=== PATIENT | male | born 1955 | race Caucasian/White ===

== ENCOUNTER 2017-10-20 16:40 | Emergency (ER) | payer SELFPAY ==
[~2017-10-20] VITALS: Ht 177.8 cm; Wt 72.0 kg
[2017-10-20 16:44] VITALS: BP 106/67; PULSE 94; RESP 20; TEMP 97.8; O2SAT 97
--- NOTE | 2017-10-20 17:32 | RADRPT ---
EXAM DATE/TIME: 10/20/2017 17:05 [place] COMPARISON: CHEST PA & LAT, April 26, 2016, 15:07. INDICATIONS : Short of breath for 3 weeks. Cough for 3 months. MEDICAL HISTORY : None. SURGICAL HISTORY : None. ENCOUNTER: Initial ACUITY: 3 months PAIN SCORE: 2/10 LOCATION: Bilateral chest FINDINGS: PA and lateral views of the chest demonstrate the lungs to be moderately hyperinflated without eviden ce of mass, infiltrate or effusion. The cardiomediastinal contours are unremarkable. Trace blunting of the costophrenic sulci Osseous structures are intact. CONCLUSION: Moderate hyperinflation, negative for acute process Chapincito Stein MD FACR on October 20, 2017 at 17:25 Board Certified Radiologist. This report was verified electronically.
[2017-10-20 18:04] VITALS: BP 132/87; PULSE 73; RESP 26; O2SAT 98
[2017-10-20] MEDS ORDERED: AZITHROMYCIN 250 MG TAB PO ONE (18:30)
[2017-10-20] MEDS ORDERED: predniSONE 20 MG TAB PO ONE (18:30)
[2017-10-20] MEDS ORDERED: RESP: ALBUTEROL 2.5 MG/IPRATROPIUM 0.5 MG NEB (SCH) NEB ONE (18:30)
[2017-10-20] MEDS ORDERED: AZIT250T3 PO (18:57)
[2017-10-20] MEDS ORDERED: VENTAER INH (18:57)
[2017-10-20] MEDS ORDERED: PRED-503 PO (18:57)
--- NOTE | 2017-10-20 18:57 | PD ---
HPI Chief Complaint: Respiratory Symptoms Time Seen by Provider: 17:39 Travel History International Travel<30 days: No Contact w/Intl Traveler<30days: No Traveled to known affect area: No History of Present Illness HPI This is a 62-year-old man who presents to the emergency department complaining of worsening shortness of breath and cough with productive sputum ongoing for the past 3 months or so.'s been told he had COPD before. No fevers. He has had some phlegm. Still smokes. Would like help to quit smoking. Has otherwise been feeling generally well. History Past Medical History Narrative Medical COPD Tobacco use Past Surgical History Surgical History: No Previous Surgery Social History Alcohol Use: No Tobacco Use: Yes (1 PPD) Allergies-Medications (Allergen,Severity, Reaction): Coded Allergies: No Known Allergies (Verified Adverse Reaction, Unknown, 10/20/17) Reported Meds & Prescriptions Reported Meds & Active Scripts Active No Active Prescriptions or Reported Medications Review of Systems Except as stated in HPI: all other systems reviewed are Neg Physical Exam Narrative GENERAL: 62-year-old man, no acute distress. SKIN: Focused skin assessment warm/dry. HEAD: Atraumatic. Normocephalic. EYES: Pupils equal and round. No scleral icterus. No injection or drainage. ENT: No nasal bleeding or discharge. Mucous membranes pink and moist. NECK: Trachea midline. No JVD. CARDIOVASCULAR: Regular rate and rhythm. No murmur appreciated. RESPIRATORY: Diminished breath sounds with rhonchi and wheezing throughout. GASTROINTESTINAL: Abdomen soft, non-tender, nondistended. Hepatic and splenic margins not palpable. MUSCULOSKELETAL: No obvious deformities. No edema. NEUROLOGICAL: Awake and alert. No obvious cranial nerve deficits. Motor grossly within normal limits. Normal speech. PSYCHIATRIC: Appropriate mood and affect; insight and judgment normal. Data Data Last Documented VS Vital Signs Date Time Temp Pulse Resp B/P (MAP) Pulse Ox O2 Delivery O2 Flow Rate FiO2 10/20/17 18:04 73 26 132/87 (102) 98 Room Air 10/20/17 16:44 97.8 Orders Orders Chest, Pa & Lat (10/20/17 16:45) Albuterol-Ipratropium Neb (Duoneb Neb) (10/20/17 18:30) Prednisone (Deltasone) (10/20/17 18:30) Azithromycin (Zithromax) (10/20/17 18:30) [facility] Medical Decision Making Medical Screen Exam Complete: Yes Emergency Medical Condition: Yes Interpretation(s) Chest x-ray negative My review of EKG: Normal sinus rhythm at a rate of 71, normal axis, normal intervals, no acute ischemia. Differential Diagnosis COPD, bronchitis, pneumonia, URI, other Narrative Course Medical decision making 62-year-old man presents to the emergency department complaining of chest pain, trouble breathing, productive cough, ongoing for 3 months, worse over the past couple days. Is likely COPD exacerbation. He also would like help quit smoking. We will give him the [place] quit line information. Diagnosis Primary Impression: COPD exacerbation Additional Instructions: Take antibiotics as prescribed. Use albuterol inhaler every 4-6 hours as needed. Take steroids as prescribed. Return to the emergency department for any worsening chest pain, trouble breathing, or any other new or worsening symptoms. Med/Other Pt SpecificInfo: Prescription(s) given Scripts Azithromycin (Azithromycin) 250 Mg Tab 250 MG PO DAILY for Infection for 4 Days, #4 TAB 0 Refills Prov: Fernando Angel MD 10/20/17 Albuterol 18 GM Inh (Ventolin Hfa 18 GM Inh) 90 Mcg/Act Aer 2 PUFF INH Q4-6H Y for SHORTNESS OF BREATH, #1 INHALER 0 Refills Prov: Fernando Angel MD 10/20/17 Prednisone (Deltasone) 20 Mg Tab 60 MG PO DAILY, #30 TAB 0 Refills Prov: Fernando Angel MD 10/20/17 Disposition: 01 DISCHARGE HOME Condition: Stable Fernando Angel MD Oct 20, 2017 18:57
[2017-10-20 19:08] VITALS: BP 135/94; PULSE 79; RESP 18; O2SAT 97
--- NOTE | 2017-10-21 13:29 | EKG ---
Date Performed: 10/20/2017 Time Performed: 17:55:09 PTAGE: 62 years EKG: Sinus rhythm NORMAL ECG NO PREVIOUS TRACING DOCTOR: Jovani Martinez Interpretating Date/Time 10/21/2017 13:26:38
== END 2017-10-20 20:02 | disposition home or self-care (01) ==
LOC: NEPE 16:40
DX: J44.1 Chronic obstructive pulmonary disease with (acute) exacerbation (principal); F17.210 Nicotine dependence, cigarettes, uncomplicated
CPT/HCPCS: 71046; 93005; 94664; 99284; J7512